=== PATIENT | male | born 1980 | race Caucasian/White ===

== ENCOUNTER 2016-05-08 10:03 | Day surgery (SDC) | payer OTHER ==
[2016-05-01 13:56] VITALS: BMI 23.1
[2016-05-08] MEDS ORDERED: LIDOCAINE HCL 2% (20ML MULTI-DOSE VIAL) NR ONE (10:21)
[2016-05-08] MEDS ORDERED: MIDAZOLAM HCL 2 MG/2 ML SINGLE DOSE VIAL ONE (11:04)
[2016-05-08] MEDS ORDERED: LIDOCAINE HCL/PF 2% SDV 5ML VIAL ONE (11:04)
[2016-05-08] MEDS ORDERED: PROPOFOL 20 ML ONE ×2 (11:04→11:34)
[2016-05-08 12:45] VITALS: TEMP 97.6
[2016-05-08 13:36] VITALS: BP 129/79; PULSE 50
--- NOTE | 2016-05-10 13:38 | OP ---
DATE OF OPERATION: 05/08/2016 PREOPERATIVE DIAGNOSIS: Right long finger/hand mass. POSTOPERATIVE DIAGNOSIS: Right long finger/hand mass. OPERATIVE PROCEDURE: Right hand mass excision. SURGEON: Mic King MD ANESTHESIA: Local with sedation. COMPLICATIONS: None. ESTIMATED BLOOD LOSS: Minimal. INDICATIONS FOR PROCEDURE: The patient is a 36-year-old male with the above finding indicated for operative treatment. Risks, benefits, and alternatives were discussed with the patient at length. Proper informed consent was obtained. DESCRIPTION OF PROCEDURE: After proper identification of patient and correct operative site, the patient was brought to the operating room and placed supine on the operating room table. All bony prominences were well padded. Sedation was given by the anesthesiologist. Local anesthesia was given 2% lidocaine. The right upper extremity was prepped and draped in the usual sterile fashion. A well-padded tourniquet was placed with a sterile prep. Esmarch bandage used to exsanguinate the right upper extremity. Tourniquet was inflated to 250 mmHg. A javy Ruba incision was made over the base of the proximal phalanx volarly. Incision was taken sharply through the skin with blunt and sharp dissection of the subcutaneous tissues. Mass was found to be a retinacular cyst emanating from the area at the A2 misha. The cyst was excised in whole and sent for pathological evaluation. The wound was irrigated with saline and repaired with a 5-0 nylon suture. At all times throughout the procedure, the digital neurovascular bundle was carefully protected. The wound was repaired with a 5-0 fast absorbing plain gut suture. Sterile dressings were applied. The patient was reversed from anesthesia and brought to recovery in stable condition. He tolerated the procedure well. MIC KING M.D. [id number]
--- NOTE | 2016-05-10 13:59 | PATH ---
Surgical Pathology Report Patient Name: LES ELIZABETH Med. Rec. #: [id number] /Age/Gender: 1980 (Age: 36) / M Account: [id number] Location: [facility] Taken: 05/08/2016 Received: 05/08/2016 Reported: 05/10/2016 Physicians: Merlin Harris M.D. Specimen(s) Received RIGHT HAND MASS Clinical History Right hand mass excision Final Diagnosis SOFT TISSUE, RIGHT HAND, EXCISION: GANGLION CYST. Electronically Signed Kalyan Jennings M.D. Gross Description Received in formalin, labeled "right hand mass," is a 0.4 x 0.3 x 0.2 cm chambers soft tissue fragment. The specimen is submitted in toto in one cassette. /05/09/201605/09/2016
== END 2016-05-08 13:00 | disposition home or self-care (01) ==
LOC: FASU 10:03
PROVIDERS: ATTEND Orthopaedic Surgery Hand Surgery
PROC: 0XBJ0ZZ Excision of Right Hand, Open Approach (ICD-10-PCS; principal; 2016-05-08 11:30)
DX: M67.441 Ganglion, right hand (principal)
CPT/HCPCS: 88304-TC